=== PATIENT | female | born 1985 | race Caucasian/White ===

== ENCOUNTER 2021-12-30 08:54 | Outpatient (CLI) | payer MEDICAID, SELFPAY ==
--- NOTE | 2021-12-30 13:40 | NEURO ---
NCS and/or EMG Patient Report Ordering Doctor: Mike Velez DATE OF SERVICE: 12/30/21 Indication: Intermittent fatigue, weakness and sensory disturbances in all limbs (most prominent in the left upper and right lower extremities). Findings: Nerve conduction studies were performed in the left upper and right lower extremities. The left median motor study recording the abductor pollicis brevis showed a normal amplitude, normal distal latency and normal conduction velocity. The left ulnar motor study recording the abductor digiti minimi showed a normal amplitude, normal distal latency and normal conduction velocity. No conduction block or focal slowing was present across the elbow. The left median sensory response recording digit two showed a normal amplitude, latency and conduction velocity. The left ulnar sensory response recording digit five showed a normal amplitude, latency and conduction velocity. The left radial sensory response recording over the extensor snuff box showed a normal amplitude, latency and conduction velocity. The right peroneal motor study recording the extensor digitorum brevis showed a normal amplitude, normal distal latency and normal conduction velocity. No conduction block or focal slowing was present across the fibular neck. The right tibial motor study recording the abductor hallucis brevis showed a normal amplitude, normal distal latency and normal conduction velocity. The right sural sensory response showed a normal amplitude and conduction velocity. The right superficial peroneal sensory response showed a normal amplitude and conduction velocity. Needle EMG of the left upper extremity and paraspinal muscles was performed. No denervation was present in any muscle. Motor unit morphology and recruitment patterns were normal. All muscles revealed diminished activation. Needle EMG of the right lower extremity and paraspinal muscles was performed. No denervation was present in any muscle. Motor unit morphology and recruitment patterns were normal. All muscles revealed diminished activation. Impression: This is an abnormal, but indeterminate study. There is no electrophysiologic evidence of peripheral neuropathy, radiculopathy or entrapment neuropathy. The limited activation seen in all muscles is nonspecific, but can be seen in lesions of the central nervous system. Alternative explanations include poor effort or pain. Clinical correlation is recommended. Kirit Alexander D.O. [employer] Codes Neurology Neurology Interp Codes: 82784-24 Musc test done w/n test comp (interp) (Qty:2) and 67180-76 Nrv cndj test 11-12 studies (interp)
== END 2021-12-30 23:59 | disposition home or self-care (01) ==
LOC: PSN 08:58
PROVIDERS: Referring Provider Psychiatry & Neurology Neurology; Visit Provider Psychiatry & Neurology Neurology
DX: M54.12 Radiculopathy, cervical region (principal); M54.17 Radiculopathy, lumbosacral region
CPT/HCPCS: 95886; 95912